=== PATIENT | male | born 1975 | race Caucasian/White ===

== ENCOUNTER 2016-09-20 01:23 | Emergency (ER) | payer OTHER ==
[~2016-09-20 01:23] MED LIST: IBUPROFEN400 MG PO
== END 2016-09-20 01:40 | disposition left against medical advice (07) ==
LOC: ER1 01:23
DX: Z53.21 Procedure and treatment not carried out due to patient leaving prior to being seen by health care provider (principal)

== ENCOUNTER 2016-10-07 12:36 | Emergency (ER) | payer OTHER | END 2016-10-07 14:20 | disposition home or self-care (01) | LOC: ER1 12:36 | DX: S46.011A Strain of muscle(s) and tendon(s) of the rotator cuff of right shoulder, initial encounter (principal); J06.9 Acute upper respiratory infection, unspecified; F17.210 Nicotine dependence, cigarettes, uncomplicated; W19.XXXA Unspecified fall, initial encounter; Y92.410 Unspecified street and highway as the place of occurrence of the external cause | CPT/HCPCS: 71020; 73030; 99283; J1885 ==

== ENCOUNTER 2020-09-24 21:53 | Inpatient (IN) | payer OTHER ==
[~2020-09-24] VITALS: Ht 180.3 cm; Wt 99.8 kg
[~2020-09-24 21:53] MED LIST changes: +BACITRACIN3.5 GM TOP; +BACTRIM DS TAB1 EACH PO; +BENTYL 20MG TAB20 MG PO; +IBUPROFEN600 MG PO; +IBUPROFEN800 MG PO; +KEFLEX CAP 500500 MG PO; +KEFLEX500 MG PO; +LODINE CAP 300300 MG PO; +PERCOCET 5/325 T1 EA PO; +ZOFRAN 4 MG TAB4 MG PO; +ZOFRAN4 MG PO
[2020-09-24 22:43] LABS: HEMOGLOBIN 14.8 gm/dl (14.0-17.5); RED BLOOD COUNT 5.21 M/UL (4.20-5.50); WHITE BLOOD COUNT 16.4 K/UL (4.5-11.0)
[2020-09-24 23:08] LABS: BUN/CREATININE RATIO 14 (0-10)
[2020-09-26 03:50] LABS: HEMOGLOBIN 14.1 gm/dl (14.0-17.5); RED BLOOD COUNT 5.02 M/UL (4.20-5.50)
[2020-09-26 03:53] LABS: WHITE BLOOD COUNT 10.2 K/UL (4.5-11.0)
[2020-09-26 04:11] LABS: BUN/CREATININE RATIO 13 (0-10)
[2020-09-27 02:29] LABS: BUN/CREATININE RATIO 13 (0-10); HEMOGLOBIN 14.5 gm/dl (14.0-17.5); RED BLOOD COUNT 5.2 M/UL (4.20-5.50)
[2020-09-27] MEDS ORDERED: AUGMENTIN 875-1 EACH PO (11:00)
[2020-09-27] MEDS ORDERED: PERCOCET 5/325 T1 EA PO (11:00)
[2020-09-28 18:11] LABS: CHLAMYDIA TRACHOMATIS, NAA Negative (Negative); NEISSERIA GONORRHOEAE, NAA Negative (Negative)
== END 2020-09-27 13:14 | disposition home or self-care (01) | DRG 854 ==
LOC: ER1 21:53 → M/S 09-25 01:33 → CDU 09-25 01:33 → M/S 09-25 01:33
PROVIDERS: Physician Assistant Medical; ADMIT Family Medicine
PROC: 0J9P0ZZ Drainage of Left Lower Leg Subcutaneous Tissue and Fascia, Open Approach (ICD-10-PCS; principal; 2020-09-26)
DX: A41.9 Sepsis, unspecified organism (principal); L03.116 Cellulitis of left lower limb; L02.416 Cutaneous abscess of left lower limb; E78.5 Hyperlipidemia, unspecified; K40.90 Unilateral inguinal hernia, without obstruction or gangrene, not specified as recurrent; Z20.822 Contact with and (suspected) exposure to COVID-19; D72.829 Elevated white blood cell count, unspecified; E87.6 Hypokalemia; F17.200 Nicotine dependence, unspecified, uncomplicated; Z72.89 Other problems related to lifestyle
CPT/HCPCS: 10060; 36415; 80048; 80053; 80202; 81001; 83605; 83735; 85025; 85027; 87040; 87070; 87205; 96374; 99284; G0378; J1335; J2270; J2405; J2543; J3370; J7030; J7070; U0002

== ENCOUNTER 2021-02-24 15:58 | Emergency (ER) | payer OTHER ==
[~2021-02-24 15:58] MED LIST changes: +AUGMENTIN 875-1 EACH PO
[2021-02-24] MEDS ORDERED: VALACYCLOVIR1000 MG PO (17:18)
[2021-02-24] MEDS ORDERED: LODINE CAP 300300 MG PO (17:18)
== END 2021-02-24 17:55 | disposition home or self-care (01) ==
LOC: ER1 15:58
DX: R21 Rash and other nonspecific skin eruption (principal); B00.1 Herpesviral vesicular dermatitis; B34.9 Viral infection, unspecified; F17.210 Nicotine dependence, cigarettes, uncomplicated
CPT/HCPCS: 99283